=== PATIENT | male | born 1955 | race Caucasian/White ===

== ENCOUNTER 2021-11-22 10:56 | Emergency (ER) | payer MEDICARE ==
[2021-11-22 12:24] LABS: BASOPHIL 0.3 % (0-2); EOSINOPHIL 0.3 % (0-7); HCT 38.7 % (42.0-52.0); HGB 13.5 g/dl (13.2-18.0); LYMPHOCYTE 6.5 % (15-48); MCH 30.5 pg (25.0-31.0); MCHC 34.9 g/dL (32.0-36.0); MCV 87.6 fL (78.0-100.0); MONOCYTE 7.2 % (0-12); MPV 11.9 fL (6.0-9.5); NEUTROPHIL 84.7 % (41-80); NRBC 0; PLT 233 K/uL (150-400); RBC 4.42 M/uL (4.70-6.00); RDW 14.1 % (11.5-14.0)
[2021-11-22 12:37] LABS: BUN/CREAT RATIO (CALC) 22.5 RATIO; CREATININE 0.8 mg/dL (0.67-1.17); POTASSIUM 3.9 mmol/L (3.5-5.1)
[2021-11-22 12:48] LABS: LACTIC ACID 1.4 mmol/L (0.4-1.9)
[2021-11-22 13:01] LABS: BILIRUBIN 1+ mg/dL (NEGATIVE); BLOOD 2+ Ery/uL (NEGATIVE); CLARITY CLEAR (CLEAR); COLOR YELLOW (YELLOW); GLUCOSE (U) NORMAL (NORMAL); LEUKOCYTES TRACE Leu/uL (NEGATIVE); NITRITE NEGATIVE (NEGATIVE); PROTEIN 1+ mg/dL (NEGATIVE)
[2021-11-22 13:06] LABS: BACTERIA TRACE; MUCOUS TRACE
[2021-11-22] MEDS ORDERED: AZITHROMYCIN250 MG PO (13:46)
== END 2021-11-22 14:06 | disposition home or self-care (01) ==
LOC: FER 10:56
PROVIDERS: Emergency Medicine
DX: J18.9 Pneumonia, unspecified organism (principal); Z20.822 Contact with and (suspected) exposure to COVID-19
CPT/HCPCS: 36415; 71045; 80048; 81001; 83605; 85025; U0002